=== PATIENT | male | born 1990 | race Two or more races ===

== ENCOUNTER 2017-11-21 20:47 | Emergency (ER) | payer OTHER, MEDICAID ==
[2017-11-21 21:00] VITALS: BP 140/65
[2017-11-21] MEDS ORDERED: TETANUS/DIPHTHERIA/PERTUSSIS 0.5 ML SYRINGE IM ONE (21:07)
[2017-11-21] MEDS ORDERED: BUFFERED LIDOCAINE 10 ML SYRINGE SUBQ STA (21:07)
--- NOTE | 2017-11-21 21:08 | ED Physician Documentation ---
PD HPI UPPER EXT INJURY - Stated complaint Stated Complaint: FINGER LAC - Chief complaint Chief Complaint: Laceration - History obtained from History obtained from: Patient - History of Present Illness Location: Right (Right-handed gentleman who is not up-to-date on tetanus was at work tonight and cut his right second finger with a knife.) Review of Systems Constitutional: reports: Reviewed and negative Cardiac: reports: Reviewed and negative Respiratory: reports: Reviewed and negative PD PAST MEDICAL HISTORY - Allergies Allergies/Adverse Reactions: Allergies Allergy/AdvReac Type Severity Reaction Status Date / Time No Known Drug Allergies Allergy Verified 11/21/17 21:00 PD ED PE NORMAL - Vitals Vital signs reviewed: Yes - General General: Alert and oriented X 3, No acute distress - Extremities Extremities: Other (He has what appears to be a pretty deep laceration on the palmar side of the right second digit at the level of the proximal phalanx, its a horizontal laceration coming up onto the radial side. He has normal sensation on both sides of the tip, flexor tendon function will be addressed during laceration repair after anesthetic.) - Neuro Neuro: Alert and oriented X 3, Normal speech Results - Vitals Vitals: Vital Signs - 24 hr 11/21/17 20:53 Temperature 36.8 C Heart Rate 78 Respiratory 18 Rate Blood Pressure 140/65 H O2 Saturation 96 Oxygen O2 Source Room air Procedures - Laceration (location) R 2nd finger Length in cm: 2 Wound type: Linear Neurovascular status: Sensory intact, Motor intact, Vascular intact Tendon involvement: Tendon intact, Other (He has good flexor tendon function of that finger and the wound was explored and it was really just into fat.) Anesthesia: Lidocaine 1%, With bicarb Wound Preparation: Irrigated copiously NS Skin layer closure: Nylon, Size #-0 - enter number (4-0), Sutures - enter # (6) Other: Patient tolerated well, No complications, Neurovascular intact, Tetanus booster given Complexity: Simple PD MEDICAL DECISION MAKING - Sepsis Event Vital Signs: Vital Signs - 24 hr 11/21/17 20:53 Temperature 36.8 C Heart Rate 78 Respiratory 18 Rate Blood Pressure 140/65 H O2 Saturation 96 Oxygen O2 Source Room air Departure - Departure Disposition: 01 Home, Self Care Clinical Impression: Finger laceration Qualifiers: Encounter type: initial encounter Finger: index finger Damage to nail status: without damage Foreign body presence: without foreign body Laterality: right Qualified Code(s): S61.210A - Laceration without foreign body of right index finger without damage to nail, initial encounter Condition: Good Instructions: ED Laceration Hand Comments: Come back for any signs of infection which would include: Redness, swelling, drainage, increased pain, or fevers. Follow-up with your physician in 14 days for suture removal. Your blood pressure was elevated today on check into the emergency department. This does not mean that you have hypertension, it is a common phenomenon to come to the emergency department and have elevated blood pressure. I recommend that you see your primary care physician within the week to have it rechecked when you are feeling better. Forms: Activity restrictions Discharge Date/Time: 11/21/17 21:39
== END 2017-11-21 21:39 | disposition home or self-care (01) ==
LOC: ED 20:47
DX: S61.210A Laceration without foreign body of right index finger without damage to nail, initial encounter (principal); W26.0XXA Contact with knife, initial encounter; Y93.89 Activity, other specified; Y92.69 Other specified industrial and construction area as the place of occurrence of the external cause; Y99.0 Civilian activity done for income or pay; R03.0 Elevated blood-pressure reading, without diagnosis of hypertension
CPT/HCPCS: 1040M; 12001; 90471; 90715; 99282; 99283

== ENCOUNTER 2017-12-04 14:38 | Emergency (ER) | payer OTHER, MEDICAID ==
[2017-12-04 14:51] VITALS: BP 117/65
--- NOTE | 2017-12-04 15:02 | ED Physician Documentation ---
PD HPI WOUND RECHECK - Stated complaint Stated Complaint: SUTURE REMOVAL - Chief complaint Chief Complaint: Ext Problem - Histroy obtained from History obtained from: Patient - History of Present Illness Location: Right Upper Extremity Timing - onset: How many weeks ago (2) Recently seen: Emergency Dept - Additional information Additional information: The patient is a 27-year-old male L who cut his right index finger while at work 2 weeks ago. He was seen here at that time and the wound was repaired with sutures. He returns today for suture removal. He denies any interim bleeding or excessive discomfort. Review of Systems Constitutional: denies: Fever Skin: reports: Laceration (s) (Healing.) Neurologic: denies: Numbness PD PAST MEDICAL HISTORY - Past Medical History Past Medical History: No Endocrine/Autoimmune: None - Past Surgical History Past Surgical History: No - Allergies Allergies/Adverse Reactions: Allergies Allergy/AdvReac Type Severity Reaction Status Date / Time No Known Drug Allergies Allergy Verified 11/21/17 21:00 - Social History Does the pt smoke?: No Smoking Status: Never smoker Does the pt drink ETOH?: Yes Does the pt have substance abuse?: No - Immunizations Immunizations are current?: Yes PD ED PE NORMAL - Vitals Vital signs reviewed: Yes (Normal) - General General: Alert and oriented X 3, Well developed/nourished - HEENT HEENT: Atraumatic - Respiratory Respiratory: No respiratory distress - Extremities Extremities: Other (Wound on the volar aspect of the right index finger over the proximal phalanx is intact with sutures. There is no erythema or drainage. Distal neurovascular is intact.) - Neuro Neuro: Alert and oriented X 3, No motor deficit, No sensory deficit Results - Vitals Vitals: Vital Signs - 24 hr 12/04/17 14:48 Temperature 37 C Heart Rate 72 Respiratory 14 Rate Blood Pressure 117/65 O2 Saturation 99 Oxygen O2 Source Room air Procedures - Suture/staple Removal (location) Finger right Palmar Suture/staple removal: # sutures (6), No complications PD MEDICAL DECISION MAKING - ED course Complexity details: reviewed old records, d/w patient ED course: The patient presents for suture removal. His wound was repaired here 2 weeks ago, and has been healing well. His exam reveals no evidence of infection or other complication. His sutures were removed without complication. I discussed with him the expected course of ongoing healing, as well as potentially worrisome signs or symptom that should prompt reevaluation. - Sepsis Event Vital Signs: Vital Signs - 24 hr 12/04/17 14:48 Temperature 37 C Heart Rate 72 Respiratory 14 Rate Blood Pressure 117/65 O2 Saturation 99 Oxygen O2 Source Room air Departure - Departure Disposition: 01 Home, Self Care Clinical Impression: Visit for suture removal Condition: Stable Instructions: ED Wound Check Sutr Remove No Infec Comments: Return to emergency if you develop any sign of infection, or if the wound reopens, or if otherwise worsening symptoms. Forms: Activity restrictions Discharge Date/Time: 12/04/17 15:09
== END 2017-12-04 15:09 | disposition home or self-care (01) ==
LOC: ED 14:38
DX: Z48.02 Encounter for removal of sutures (principal)
CPT/HCPCS: 99282

== ENCOUNTER 2018-09-24 08:00 | Outpatient (CLI) | payer MEDICAID ==
[2018-09-24 18:27] LABS: BASOPHILS % (AUTO) 0.2 %; EOSINOPHILS # (AUTO) 0.1 10^3/uL (0.0-0.7); EOSINOPHILS % (AUTO) 1.4 %; HGB - HEMOGLOBIN 14.7 g/dL (14.0-18.0); LYMPHOCYTES # (AUTO) 1.6 10^3/uL (1.5-3.5); LYMPHOCYTES % (AUTO) 21.9 %; MEAN CORPUSCULAR HGB CONC 33.6 g/dL (32.0-36.0); MEAN CORPUSCULAR VOLUME 86.3 fL (80.0-94.0); MEAN PLATELET VOLUME 11.2 fL (7.4-11.4); MONOCYTES # (AUTO) 0.3 10^3/uL (0.0-1.0); MONOCYTES % (AUTO) 4.3 %; NEUTROPHILS # (AUTO) 5.3 10^3/uL (1.5-6.6); NEUTROPHILS % (AUTO) 72.2 %; PLT - PLATELET COUNT 186 10^3/uL (130-450); RED BLOOD COUNT 5.08 10^6/uL (4.70-6.10); WHITE BLOOD COUNT 7.3 x10^3/uL (4.8-10.8)
[2018-09-24 18:57] LABS: PLATELET ESTIMATE, MANUAL NORMAL (130-450,000) (NORMAL); PLATELET MORPHOLOGY 1+ GIANT PLATELETS (NORMAL); RBC MORPHOLOGY (MULTIPLE) NORMAL APPEARANCE (NORMAL)
[2018-09-24 19:11] LABS: ALBUMIN 4.5 g/dL (3.2-5.5); ALBUMIN/GLOBULIN RATIO 1.6 (1.0-2.2); ALKALINE PHOSPHATASE 48 IU/L (42-121); ALT ALANINE AMINOTRANSFERASE 14 IU/L (10-60); AST ASPARTATE AMINOTRANSFERASE 15 IU/L (10-42); BILIRUBIN,TOTAL 0.8 mg/dL (0.2-1.0); BUN - BLOOD UREA NITROGEN 8 mg/dL (6-20); CALCIUM 9.3 mg/dL (8.5-10.3); CARBON DIOXIDE - CO2 24 mmol/L (21-32); CHLORIDE 105 mmol/L (101-111); CREATININE 0.6 mg/dL (0.6-1.2); GFR - MDRD 160 (>89); GLUCOSE 102 mg/dL (70-100); SODIUM 137 mmol/L (135-145); TOTAL PROTEIN 7.4 g/dL (6.7-8.2)
[2018-09-24 19:13] LABS: THYROID STIMULATING HORMONE 0.28 uIU/mL (0.34-5.60)
[2018-09-24 19:24] LABS: FOLATE 14.76 ng/mL (5.90 - >24.8)
[2018-09-24 19:30] LABS: RHEUMATOID FACTOR NEGATIVE (Negative)
[2018-09-24 19:47] LABS: CRP - C-REACTIVE PROTEIN < 1.0 mg/dL (0-1.0)
[2018-09-27 12:01] LABS: ANA SCREEN NEGATIVE (NEGATIVE)
== END 2018-09-24 23:59 | disposition home or self-care (01) ==
LOC: LAB.N 08:00
PROVIDERS: ATTEND Nurse Practitioner
DX: R63.4 Abnormal weight loss (principal)
CPT/HCPCS: 36415; 80053; 82607; 82746; 84443; 85025; 85651; 86038; 86140; 86430